=== PATIENT | male | born 1975 | race Caucasian/White ===

== ENCOUNTER 2016-10-26 19:35 | Emergency (ER) | payer SELFPAY ==
[~2016-10-26] VITALS: Ht 188 cm; Wt 98.8 kg
[2016-10-26 19:35] VITALS: BP 125/84
[2016-10-26] MEDS ORDERED: HYDR-2758 PO (20:50)
[2016-10-26] MEDS ORDERED: AZIT250T6 PO (20:50)
[2016-10-26] MEDS ORDERED: IPRATRPIUM/ALBUTEROL 0.5/2.5MG 3 ML NEBU. ONE (20:50)
[2016-10-26] MEDS ORDERED: ALBU6.7H IH (20:50)
--- NOTE | 2016-10-26 20:50 | PHYS DOC ---
Past History Past Medical History: Bronchitis, Pneumonia Past Surgical History: No Surgical History Smoking: Cigarettes, Greater than 1 pack/day Alcohol Use: Occasionally Drug Use: None Adult General Chief Complaint Chief Complaint: FEVER HPI HPI Patient is a pleasant 41-year-old male who presents with a productive cough objective fevers and chills bothering for the last 2-3 days. Patient admits that he does smoke and is transitioning to a vaporizer version of smoking. He presents today because he is having uncomfortable chest discomfort with cough. Some mild shortness of breath with this cough and mild sore throat with runny nose and congestion. Although he has not actually measured his fever he's had chills last several days. He denies any sick contacts, travel outside the country or recent antimicrobial use. Pain in his chest described as moderate with coughing. It does not radiate to his back shoulders or arms. Does not cause any shortness of breath. Review of Systems Review of Systems Constitutional: As complained of fevers and chills subjectively. Eyes: Denies change in visual acuity, redness, or eye pain [] HENT: Has complained of nasal congestion without sore throat Respiratory: Does continue to complain of a nonproductive cough with shortness of breath secondary to pain Cardiovascular: No additional information not addressed in HPI [] GI: Denies abdominal pain, nausea, vomiting, bloody stools or diarrhea [] : Denies dysuria or hematuria [] Musculoskeletal: Denies back pain or joint pain [] Integument: Denies rash or skin lesions [] Neurologic: Denies headache, focal weakness or sensory changes [] Endocrine: Denies polyuria or polydipsia [] Physical Exam Physical Exam Vital signs recorded on the chart within normal limits. Constitutional: Well developed, well nourished, no acute distress, non-toxic appearance. [] HENT: Normocephalic, atraumatic, bilateral external ears normal, oropharynx moist, mild erythema no oral exudates, nose normal. [] Eyes: PERRLA, EOMI, conjunctiva normal, no discharge. [] Neck: Normal range of motion, no tenderness, supple, no stridor. [] Cardiovascular:Heart rate regular rhythm, no murmur [] Lungs & Thorax: She has slight wheezing in the lower lung crespo with cough. No retractions accessory muscle use. Skin: Warm, dry, no erythema, no rash. [] Neurologic: Alert and oriented X 3, normal motor function, normal sensory function, no focal deficits noted. [] Psychologic: Affect normal, judgement normal, mood normal. [] EKG EKG [] Radiology/Procedures Radiology/Procedures [] Course & Med Decision Making Course & Med Decision Making Pertinent Labs and Imaging studies reviewed. (See chart for details) The bedside given patient's pain we talked about possibly doing a chest x-ray. Patient sided financial reasons for not wanting to get these x-rays completed. Given his smoking history and history of pneumonia we have decided to empirically treat him with albuterol for his bronchitis and azithromycin for his presumptive diagnosis of bronchitis secondary smoking and a possible pneumonia. Patient was also given a cough suppressant include hydrocodone here him or to perform for his discomfort and asked to follow-up with his primary care doctor this week. He is agreeable all with his fianc at the bedside with this plan and will follow-up as appropriate. In the interim he was given a dose of all his medications here in the emergency department because but as it is Thursday wanted to make sure that his therapy started. [] Dragon Disclaimer Dragon Disclaimer This chart was dictated in whole or in part using Voice Recognition software in a busy, high-work load, and often noisy Emergency Department environment. It may contain unintended and wholly unrecognized errors or omissions. Departure Departure: Impression: Primary Impression: Bronchitis Disposition: 01 HOME, SELF-CARE Condition: IMPROVED Referrals: PCP,NO (PCP) Patient Instructions: Acute Bronchitis, Chest Pain (Nonspecific) Additional Instructions: My discharge plan Follow up: In addition patient is asked to followup with their primary doctor, within a week for followup examination and to address patient's ongoing medical conditions. Because patient does not have a regular medical doctor, a local physician Resource Sheet will be provided to establish care primary care. Patient is advised that in the Emergency Department primary complaints are addressed and only in light of known signs and symptoms. Patient should return immediately to the emergency department if new signs and symptoms develop or patient's condition worsens in any way. At time of discharge patient was in stable condition and had verbalized understanding of the discharge instructions. Scripts Hydrocodone Bit/Acetaminophen (HYDROCODONE-APAP 5-325 ) 1 Each Tablet 1 TAB PO PRN Q6HRS Y for PAIN for 5 Days, #10 TAB 0 Refills Prov: VENESSA RUIZ MD 10/26/16 Azithromycin (AZITHROMYCIN TABLET) 250 Mg Tablet 250 MG PO DAILY for ANTI-BIOTIC for 5 Days, #5 TAB 0 Refills Please take 2 times the first day Please take one tablet day 2 through 5. Prov: VENESSA RUIZ MD 10/26/16 Albuterol Sulfate (PROVENTIL HFA INHALER) 6.7 Gm Hfa.aer.ad 1-2 PUFF IH PRN Q4HRS Y for WHEEZING for 7 Days, INHALER 0 Refills Please dispense inhaler with a spacer Prov: VENESSA RUIZ MD 10/26/16 VENESSA RUIZ MD Oct 26, 2016 20:50
[2016-10-26] MEDS ORDERED: AZITHROMYCIN 250 MG TABLET. ONE (20:51)
[2016-10-26] MEDS ORDERED: HYDROcodone/APAP 5/325MG 1 TAB TABLET PO ONE (21:15)
[2016-10-26] MEDS ORDERED: AZITHROMYCIN 250 MG TABLET. PO ONE (21:15)
[2016-10-26] MEDS ORDERED: IPRATRPIUM/ALBUTEROL 0.5/2.5MG 3 ML NEBU. NEB ONE (21:15)
== END 2016-10-26 21:05 | disposition home or self-care (01) ==
LOC: ER 19:35
DX: J40 Bronchitis, not specified as acute or chronic (principal); F17.210 Nicotine dependence, cigarettes, uncomplicated; Z87.01 Personal history of pneumonia (recurrent)
CPT/HCPCS: 94640; 99283; J0456; J7620

== ENCOUNTER 2016-11-03 15:09 | Emergency (ER) | payer SELFPAY ==
[~2016-11-03] VITALS: Ht 188 cm; Wt 90.7 kg
[~2016-11-03 15:09] MED LIST: ALBU6.7H IH; AZIT250T6 PO; HYDR-2758 PO
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
--- NOTE | 2016-11-03 16:19 | RAD ---
EXAM: Lumbar spine 2 or 3 views. HISTORY: Low back pain COMPARISON: None. FINDINGS: There is a minimal levocurvature. Vertebral body heights are maintained, and no fractures are identified. Degenerative disc disease is mild at L3-4. IMPRESSION: 1. Mild degenerative disc disease at L3-4.
[2016-11-03] MEDS ORDERED: CYCL-331 PO (16:33)
[2016-11-03 16:40] VITALS: BP 126/75
[2016-11-03] MEDS ORDERED: IBUPROFEN 600 MG TABLET. PO ONE (17:10)
[2016-11-03] MEDS ORDERED: CYCLOBENZAPRINE 10 MG TABLET. PO ONE (17:10)
== END 2016-11-03 16:51 | disposition home or self-care (01) ==
LOC: ER 15:09
DX: M54.5 Low back pain (principal); F17.210 Nicotine dependence, cigarettes, uncomplicated; V43.62XA Car passenger injured in collision with other type car in traffic accident, initial encounter; Y93.89 Activity, other specified; Y99.8 Other external cause status; Y92.89 Other specified places as the place of occurrence of the external cause
CPT/HCPCS: 72100; 99284